=== PATIENT | male | born 1990 | race Two or more races ===

== ENCOUNTER 2020-07-28 01:29 | Emergency (ER) | payer MEDICAID ==
[~2020-07-28] VITALS: Ht 170.2 cm; Wt 63.5 kg
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
[2020-07-28] MEDS ORDERED: LIDOCAINE 1%-EPI 1:100,000 20 ML VIAL ONE (02:07)
--- NOTE | 2020-07-28 02:15 | NUR ---
taken to ct
--- NOTE | 2020-07-28 02:56 | NUR ---
called corrie to have images read.
--- NOTE | 2020-07-28 03:15 | NUR ---
at bedside for sherrie on head lacs
--- NOTE | 2020-07-28 03:18 | NUR ---
Patient discharged to home in stable condition. Written and verbal after care instructions given. Patient verbalizes understanding of instruction. Pt ambulatory with a steady gait
[2020-07-28 03:25] VITALS: BP 121/77
== END 2020-07-28 03:18 | disposition home or self-care (01) ==
LOC: ER 01:31
DX: S01.01XA Laceration without foreign body of scalp, initial encounter (principal); S01.112A Laceration without foreign body of left eyelid and periocular area, initial encounter; M25.561 Pain in right knee; F41.9 Anxiety disorder, unspecified; Y04.0XXA Assault by unarmed brawl or fight, initial encounter; Y93.89 Activity, other specified; Y92.481 Parking lot as the place of occurrence of the external cause; Y99.8 Other external cause status
CPT/HCPCS: 12001; 12011; 70450; 70486; 73564; 99285; A6403; J3490